=== PATIENT | female | born 1995 | race Caucasian/White ===

== ENCOUNTER 2020-06-04 14:22 | Outpatient (CLI) | payer MEDICAID ==
[~2020-06-04 14:22] MED LIST: COROTSUS LEFT EAR; DIAZ5TAB PO; IBUP-1051 PO; IBUP-1573 PO; TRAM50TA2 PO
== END 2020-06-04 23:59 | disposition home or self-care (01) ==
LOC: CARD DIAG 14:22
PROVIDERS: ATTEND Obstetrics & Gynecology
DX: F11.20 Opioid dependence, uncomplicated (principal)
CPT/HCPCS: 93005